=== PATIENT | male | born 1995 | race African-American/Black ===

== ENCOUNTER 2020-09-09 16:55 | Emergency (ER) | payer MEDICAID ==
[~2020-09-09] VITALS: Ht 182.9 cm; Wt 70.0 kg
[2020-09-09] MEDS ORDERED: ONDANSETRON 4MG ODT PO STA (18:04)
[2020-09-09] MEDS ORDERED: VISCOUS LIDOCAINE 2% 15 ML UDC PO STA (18:04)
[2020-09-09] MEDS ORDERED: MAGNESIUM/ALUMINUM HYDROXIDE/SIMETHICONE 30ML UDC PO STA (18:04)
[2020-09-09] MEDS ORDERED: SODIUM CHLORIDE 0.9% 1,000 ML IV ONE (18:30)
[2020-09-09] MEDS ORDERED: FAMOTIDINE 20MG/2ML VIAL IV NR (18:30)
[2020-09-09 19:07] LABS: BASOPHILS % 0.3 % (0.0-2.0); EOSINOPHILS % 0.1 % (0.0-5.0); HEMATOCRIT. 56.5 % (42.0-52.0); HEMOGLOBIN. 19.7 g/dL (14.0-18.0); LYMPHOCYTES % 18.3 % (20.0-50.0); MEAN CORPUSCULAR HEMOGLOBIN 28.1 pg (28.0-32.0); MEAN CORPUSCULAR VOLUME 80.8 fL (80.0-94.0); MEAN PLATELET VOLUME 8.7 fl (7.4-10.4); MONOCYTES % 7.5 % (2.0-8.0); NEUTROPHILS % 73.8 % (40.0-76.0); PLATELET 222 x1000/uL (130-400); RED BLOOD CELL COUNT 6.99 mill/uL (4.7-6.1); RED CELL DISTRIBUTION WIDTH 14.5 % (11.6-14.6)
[2020-09-09 19:10] LABS: CHLORIDE 105 mEq/L (98-107)
[2020-09-09 19:12] LABS: INR 1.2; PROTHROMBIN TIME 12.5 sec (9.6-11.0)
[2020-09-09 19:13] LABS: ETHANOL BLOOD < 10 mg/dL
[2020-09-09] MEDS ORDERED: ACETAMINOPHEN 325MG TABLET PO NR (20:45)
[2020-09-09] MEDS ORDERED: ACET-2708 MT (20:47)
[2020-09-09] MEDS ORDERED: ONDA4TAB5 MT (20:48)
[2020-09-09] MEDS ORDERED: FAMO-135 MT (20:48)
[2020-09-09 20:50] LABS: CLARITY URINE CLEAR (CLEAR); COLOR URINE DARK YELLOW (YELLOW); KETONES URINE 2+ (NEGATIVE); LEUKOCYTE ESTERASE URINE TRACE (NEGATIVE); NITRITE URINE NEGATIVE (NEGATIVE); OCCULT BLOOD URINE NEGATIVE (NEGATIVE); PH URINE 6.5 (4.5-8.0); PROTEIN URINE 1+ (NEGATIVE); SPECIFIC GRAVITY URINE 1.031 (1.005-1.030)
[2020-09-09 21:19] LABS: *AMPHETAMINES SCREEN URINE NEGATIVE (NEGATIVE); *BARBITURATES SCREEN URINE NEGATIVE (NEGATIVE); *BENZODIAZEPINES SCREEN URINE NEGATIVE (NEGATIVE); *COCAINE SCREEN URINE NEGATIVE (NEGATIVE); METHADONE URINE SCREEN NEGATIVE (NEGATIVE); OPIATES URINE SCREEN NEGATIVE (NEGATIVE); PHENCYCLIDINE URINE SCREEN NEGATIVE (NEGATIVE)
[2020-09-09 21:20] LABS: CANNABINOID URINE SCREEN PRESUMTIVE POSITIVE (NEGATIVE)
[2020-09-09 22:15] VITALS: BP 121/79
== END 2020-09-09 22:33 | disposition home or self-care (01) ==
LOC: ER 16:55
DX: R10.13 Epigastric pain (principal); M25.512 Pain in left shoulder; R11.2 Nausea with vomiting, unspecified; F17.200 Nicotine dependence, unspecified, uncomplicated; K21.9 Gastro-esophageal reflux disease without esophagitis; Z13.9 Encounter for screening, unspecified
CPT/HCPCS: 36415; 80053; 80305; 80320; 81003; 83690; 85025; 85610; 96361; 96374; 99284; J3490; J7030; Q0162; L3670; G0480

== ENCOUNTER 2020-11-09 10:37 | Emergency (ER) | payer MEDICAID ==
[~2020-11-09] VITALS: Ht 170.2 cm; Wt 70.0 kg
[~2020-11-09 10:37] MED LIST: ACET-2708 MT; FAMO-135 MT; ONDA4TAB5 MT
[2020-11-09] MEDS ORDERED: IBUPROFEN 600MG TABLET PO ONE (11:15)
[2020-11-09 11:41] LABS: BASOPHILS % 0.6 % (0.0-2.0); EOSINOPHILS % 0.3 % (0.0-5.0); HEMATOCRIT. 54.2 % (42.0-52.0); HEMOGLOBIN. 18.5 g/dL (14.0-18.0); LYMPHOCYTES % 26.7 % (20.0-50.0); MEAN CORPUSCULAR HEMOGLOBIN 27.6 pg (28.0-32.0); MEAN CORPUSCULAR VOLUME 81.1 fL (80.0-94.0); MEAN PLATELET VOLUME 8.6 fl (7.4-10.4); MONOCYTES % 8.1 % (2.0-8.0); NEUTROPHILS % 64.3 % (40.0-76.0); PLATELET 179 x1000/uL (130-400); RED BLOOD CELL COUNT 6.69 mill/uL (4.7-6.1); RED CELL DISTRIBUTION WIDTH 13.8 % (11.6-14.6)
[2020-11-09 11:44] LABS: CHLORIDE 102 mEq/L (98-107)
[2020-11-09 12:59] VITALS: BP 124/90
[2020-11-09] MEDS ORDERED: IBUP-2029 PO (13:41)
== END 2020-11-09 13:50 | disposition home or self-care (01) ==
LOC: ER 10:50
DX: M25.512 Pain in left shoulder (principal); R07.89 Other chest pain; K21.9 Gastro-esophageal reflux disease without esophagitis
CPT/HCPCS: 36415; 71045; 73030; 80053; 83880; 84484; 85025; 93005; 99285

== ENCOUNTER 2021-03-15 10:27 | Emergency (ER) | payer MEDICAID ==
[~2021-03-15] VITALS: Ht 182.9 cm; Wt 54.5 kg
[~2021-03-15 10:27] MED LIST changes: +IBUP-2029 PO
[2021-03-15] MEDS ORDERED: MAGNESIUM/ALUMINUM HYDROXIDE/SIMETHICONE 30ML UDC PO STA (11:08)
[2021-03-15] MEDS ORDERED: ONDANSETRON HCL 4MG/2ML INJ IV STA (11:08)
[2021-03-15] MEDS ORDERED: FAMOTIDINE 20MG/2ML VIAL IV STA (11:08)
[2021-03-15] MEDS ORDERED: DICYCLOMINE 10 MG/5 ML ORAL SYR PO STA (11:08)
[2021-03-15] MEDS ORDERED: VISCOUS LIDOCAINE 2% 15 ML UDC PO STA (11:08)
[2021-03-15 11:26] LABS: BASOPHILS % 0.6 % (0.0-2.0); EOSINOPHILS % 0.7 % (0.0-5.0); HEMATOCRIT. 46.3 % (42.0-52.0); HEMOGLOBIN. 15.9 g/dL (14.0-18.0); LYMPHOCYTES % 25.2 % (20.0-50.0); MEAN CORPUSCULAR HEMOGLOBIN 27.8 pg (28.0-32.0); MEAN CORPUSCULAR VOLUME 81.2 fL (80.0-94.0); MEAN PLATELET VOLUME 8.4 fl (7.4-10.4); MONOCYTES % 8.2 % (2.0-8.0); NEUTROPHILS % 65.3 % (40.0-76.0); PLATELET 154 x1000/uL (130-400); RED CELL DISTRIBUTION WIDTH 14.1 % (11.6-14.6)
[2021-03-15 11:33] LABS: CHLORIDE 105 mEq/L (98-107)
[2021-03-15] MEDS: LIDOCAINE HCL 20 MG/ML 100ML BOTTLE PO NR ×2 (12:25→12:36)
[2021-03-15] MEDS ORDERED: OMEP20CA14 PO (12:28)
[2021-03-15] MEDS ORDERED: ONDA4TAB5 PO (12:28)
[2021-03-15] MEDS ORDERED: TOPUD PO (12:28)
[2021-03-15 14:54] VITALS: BP 131/85
== END 2021-03-15 13:54 | disposition home or self-care (01) ==
LOC: ER 10:37
DX: K21.9 Gastro-esophageal reflux disease without esophagitis (principal); M25.512 Pain in left shoulder
CPT/HCPCS: 36415; 73030; 76705; 80053; 83690; 85025; 96374; 96375; 99285; J2405; J3490

== ENCOUNTER 2021-05-15 10:01 | Emergency (ER) | payer MEDICAID, OTHER ==
[~2021-05-15] VITALS: Ht 175.3 cm; Wt 73.0 kg
[~2021-05-15 10:01] MED LIST changes: +OMEP20CA14 PO; +ONDA4TAB5 PO; +TOPUD PO
[2021-05-15] MEDS ORDERED: MORPHINE SULFATE 4 MG/ML CPJ (NOT FOR IM USE) IV STA (10:17)
[2021-05-15] MEDS ORDERED: FAMOTIDINE 20MG/2ML VIAL IV STA (10:17)
[2021-05-15] MEDS ORDERED: ONDANSETRON HCL 4MG/2ML INJ IV STA (10:17)
[2021-05-15 10:38] LABS: BASOPHILS % 0.6 % (0.0-2.0); EOSINOPHILS % 0.6 % (0.0-5.0); HEMATOCRIT. 47.5 % (42.0-52.0); HEMOGLOBIN. 16.4 g/dL (14.0-18.0); LYMPHOCYTES % 24.9 % (20.0-50.0); MEAN CORPUSCULAR HEMOGLOBIN 27.5 pg (28.0-32.0); MEAN CORPUSCULAR VOLUME 79.7 fL (80.0-94.0); MEAN PLATELET VOLUME 8.4 fl (7.4-10.4); MONOCYTES % 6.8 % (2.0-8.0); NEUTROPHILS % 67.1 % (40.0-76.0); PLATELET 164 x1000/uL (130-400); RED BLOOD CELL COUNT 5.96 mill/uL (4.7-6.1); RED CELL DISTRIBUTION WIDTH 14.3 % (11.6-14.6)
[2021-05-15 10:45] LABS: CHLORIDE 104 mEq/L (98-107)
[2021-05-15 11:33] LABS: PROTHROMBIN TIME 10.9 sec (9.6-11.0)
[2021-05-15] MEDS ORDERED: MAGNESIUM/ALUMINUM HYDROXIDE/SIMETHICONE 30ML UDC PO STA (11:48)
[2021-05-15] MEDS ORDERED: DICYCLOMINE 10 MG/5 ML ORAL SYR PO STA (11:48)
[2021-05-15] MEDS ORDERED: VISCOUS LIDOCAINE 2% 15 ML UDC PO STA (11:48)
[2021-05-15 12:10] LABS: CLARITY URINE CLEAR (CLEAR); COLOR URINE DARK YELLOW (YELLOW); KETONES URINE 1+ (NEGATIVE); LEUKOCYTE ESTERASE URINE TRACE (NEGATIVE); NITRITE URINE NEGATIVE (NEGATIVE); OCCULT BLOOD URINE NEGATIVE (NEGATIVE); PROTEIN URINE 2+ (NEGATIVE); SPECIFIC GRAVITY URINE 1.033 (1.005-1.030)
[2021-05-15] MEDS ORDERED: SUCRALFATE 1 G/10 ML UDC PO SCH (13:00)
[2021-05-15 15:07] VITALS: BP 119/77
== END 2021-05-15 15:34 | disposition short-term general hospital (02) ==
LOC: ER 10:01
DX: R10.13 Epigastric pain (principal); K92.0 Hematemesis; Z87.11 Personal history of peptic ulcer disease
CPT/HCPCS: 36415; 74176; 80053; 81003; 83690; 85025; 85610; 86850; 86900; 86901; 96374; 96375; 99284; J2270; J2405; J3490

== ENCOUNTER 2021-10-25 09:23 | Emergency (ER) | payer MEDICAID, OTHER ==
[~2021-10-25] VITALS: Ht 177.8 cm; Wt 75.0 kg
[2021-10-25] MEDS ORDERED: MORPHINE SULFATE 4 MG/ML CPJ (NOT FOR IM USE) IV STA (09:43)
[2021-10-25] MEDS ORDERED: ONDANSETRON HCL 4MG/2ML INJ IV STA (09:43)
[2021-10-25] MEDS ORDERED: SODIUM CHLORIDE 0.9% 1,000 ML IV ONE (09:45)
[2021-10-25] MEDS ORDERED: MIDAZOLAM HCL 2 MG/2 ML VIAL IV ONE (09:45)
[2021-10-25 10:14] LABS: BASOPHILS % 0.4 % (0.0-2.0); EOSINOPHILS % 0.1 % (0.0-5.0); HEMATOCRIT. 53.7 % (42.0-52.0); HEMOGLOBIN. 18.7 g/dL (14.0-18.0); LYMPHOCYTES % 29.9 % (20.0-50.0); MEAN CORPUSCULAR HEMOGLOBIN 28.1 pg (28.0-32.0); MEAN CORPUSCULAR VOLUME 80.4 fL (80.0-94.0); MEAN PLATELET VOLUME 9.9 fl (7.4-10.4); MONOCYTES % 7.7 % (2.0-8.0); NEUTROPHILS % 61.9 % (40.0-76.0); PLATELET 186 x1000/uL (130-400); RED BLOOD CELL COUNT 6.68 mill/uL (4.7-6.1); RED CELL DISTRIBUTION WIDTH 14.5 % (11.6-14.6)
[2021-10-25 10:22] LABS: CHLORIDE 104 mEq/L (98-107)
[2021-10-25 10:26] LABS: INR 1.1; PROTHROMBIN TIME 11.4 sec (9.6-11.0)
[2021-10-25 10:30] LABS: ETHANOL BLOOD < 10 mg/dL
[2021-10-25 12:48] LABS: CLARITY URINE CLEAR (CLEAR); COLOR URINE DARK YELLOW (YELLOW); KETONES URINE 1+ (NEGATIVE); LEUKOCYTE ESTERASE URINE TRACE (NEGATIVE); NITRITE URINE NEGATIVE (NEGATIVE); OCCULT BLOOD URINE NEGATIVE (NEGATIVE); PH URINE 5.5 (4.5-8.0); PROTEIN URINE 3+ (NEGATIVE); SPECIFIC GRAVITY URINE 1.043 (1.005-1.030)
[2021-10-25 13:34] LABS: *AMPHETAMINES SCREEN URINE NEGATIVE (NEGATIVE); *BARBITURATES SCREEN URINE NEGATIVE (NEGATIVE); *BENZODIAZEPINES SCREEN URINE PRESUMTIVE POSITIVE (NEGATIVE); *COCAINE SCREEN URINE NEGATIVE (NEGATIVE); CANNABINOID URINE SCREEN PRESUMTIVE POSITIVE (NEGATIVE); METHADONE URINE SCREEN NEGATIVE (NEGATIVE); OPIATES URINE SCREEN PRESUMTIVE POSITIVE (NEGATIVE); PHENCYCLIDINE URINE SCREEN NEGATIVE (NEGATIVE)
[2021-10-25] MEDS ORDERED: KETOROLAC 30MG/ML VIAL IV ONE (13:45)
[2021-10-25] MEDS ORDERED: ONDA4TAB11 PO (14:04)
[2021-10-25] MEDS ORDERED: OMEP20CA14 MT (14:04)
[2021-10-25] MEDS ORDERED: DICY20TA2 MT (14:04)
[2021-10-25 14:35] VITALS: BP 145/84
== END 2021-10-25 14:40 | disposition home or self-care (01) ==
LOC: ER 09:23
DX: R10.13 Epigastric pain (principal); K92.0 Hematemesis; R71.8 Other abnormality of red blood cells; I10 Essential (primary) hypertension; E83.52 Hypercalcemia; R79.89 Other specified abnormal findings of blood chemistry; F12.90 Cannabis use, unspecified, uncomplicated; Z87.11 Personal history of peptic ulcer disease
CPT/HCPCS: 36415; 71045; 80053; 80305; 80320; 81003; 83690; 85025; 85610; 96361; 96374; 96375; 99285; J1885; J2250; J2270; J2405; J7030; G0480

== ENCOUNTER 2021-12-10 08:13 | Emergency (ER) | payer OTHER ==
[~2021-12-10] VITALS: Ht 182.9 cm; Wt 68.0 kg
[~2021-12-10 08:13] MED LIST changes: +DICY20TA2 MT; +OMEP20CA14 MT; +ONDA4TAB11 PO
[2021-12-10] MEDS ORDERED: MAGNESIUM/ALUMINUM HYDROXIDE/SIMETHICONE 30ML UDC PO STA (10:53)
[2021-12-10] MEDS ORDERED: VISCOUS LIDOCAINE 2% 15 ML UDC PO STA (10:53)
[2021-12-10] MEDS ORDERED: METOCLOPRAMIDE HCL 10MG TABLET PO STA (10:53)
[2021-12-10] MEDS ORDERED: FAMOTIDINE 20MG TABLET PO ONE (11:00)
[2021-12-10 11:29] LABS: BASOPHILS % 0.3 % (0.0-2.0); EOSINOPHILS % 0.4 % (0.0-5.0); HEMATOCRIT. 47.6 % (42.0-52.0); HEMOGLOBIN. 16.6 g/dL (14.0-18.0); LYMPHOCYTES % 28.7 % (20.0-50.0); MEAN CORPUSCULAR HEMOGLOBIN 28.6 pg (28.0-32.0); MEAN PLATELET VOLUME 8.3 fl (7.4-10.4); MONOCYTES % 4.9 % (2.0-8.0); NEUTROPHILS % 65.7 % (40.0-76.0); PLATELET 167 x1000/uL (130-400); RED BLOOD CELL COUNT 5.81 mill/uL (4.7-6.1); RED CELL DISTRIBUTION WIDTH 14.9 % (11.6-14.6)
[2021-12-10 11:41] LABS: CHLORIDE 106 mEq/L (98-107)
[2021-12-10] MEDS ORDERED: ACETAMINOPHEN 325MG TABLET PO ONE (13:30)
[2021-12-10 14:13] VITALS: BP 132/55
== END 2021-12-10 14:15 | disposition home or self-care (01) ==
LOC: ER 08:23
DX: R10.9 Unspecified abdominal pain (principal); R11.10 Vomiting, unspecified; K21.9 Gastro-esophageal reflux disease without esophagitis; I10 Essential (primary) hypertension; F20.9 Schizophrenia, unspecified; F12.10 Cannabis abuse, uncomplicated; Z79.899 Other long term (current) drug therapy
CPT/HCPCS: 36415; 80053; 83690; 85025; 99284; J8597

== ENCOUNTER 2024-01-17 18:01 | Emergency (ER) | payer OTHER ==
[~2024-01-17] VITALS: Ht 188 cm; Wt 65.7 kg
[~2024-01-17 18:01] MED LIST changes: +ONDA-239 PO; -ONDA4TAB11 PO
[2024-01-17 18:06] VITALS: BP 138/102; PULSE 120; RESP 16; O2SAT 99
[2024-01-17 19:55] LABS: BASOPHILS % 0.4 % (0.0-2.0); DIFFERENTIAL COMMENT 0; EOSINOPHILS % 0.2 % (0.0-5.0); HEMATOCRIT. 46.1 % (42.0-52.0); HEMOGLOBIN. 16.5 g/dL (14.0-18.0); LYMPHOCYTES % 42.9 % (20.0-50.0); MEAN CORPUSCULAR HEMOGLOBIN 28.3 pg (28.0-32.0); MEAN CORPUSCULAR HGB CONC 35.7 g/dL (31.0-37.0); MEAN CORPUSCULAR VOLUME 79.2 fL (80.0-94.0); MEAN PLATELET VOLUME 8.1 fl (7.4-10.4); MONOCYTES % 9.1 % (2.0-8.0); NEUTROPHILS % 47.4 % (40.0-76.0); PLATELET 160 x1000/uL (130-400); RED BLOOD CELL COUNT 5.82 mill/uL (4.7-6.1); RED CELL DISTRIBUTION WIDTH 14.8 % (11.6-14.6); WHITE BLOOD COUNT 6.5 x1000/uL (4.5-11.0)
[2024-01-17 19:56] LABS: CHLORIDE 101 mEq/L (98-107); POTASSIUM 3.9 mEq/L (3.5-5.1); SODIUM 136 mEq/L (136-145)
[2024-01-17 19:57] LABS: CALCIUM 10.9 mg/dL (8.7-10.4); CARBON DIOXIDE 28 mEq/L (21-32)
[2024-01-17 20:00] LABS: INR 1.1; PROTHROMBIN TIME 11.8 sec (9.6-11.0)
[2024-01-17 20:02] LABS: CREATININE 1.2 mg/dL (0.6-1.3); GLUCOSE 91 mg/dL (70-105); UREA NITROGEN BLOOD 13 mg/dL (9-23)
[2024-01-17 20:04] LABS: ALANINE AMINOTRANSFERASE 33 IU/L (10-49); ASPARTATE AMINOTRANSFERASE 32 IU/L (<34); BILIRUBIN DIRECT 0.3 mg/dL (<=3.0); BILIRUBIN TOTAL 0.9 mg/dL (0.1-1.0); PROTEIN TOTAL 8.7 g/dL (6.0-8.3)
[2024-01-17] MEDS: MAGNESIUM/ALUMINUM HYDROXIDE/SIMETHICONE 30ML UDC PO STA (20:08)
[2024-01-17 20:17] VITALS: TEMP 98.2
[2024-01-17] MEDS: ONDANSETRON HCL 4MG/2ML INJ IV STA (20:17)
[2024-01-17] MEDS: ACETAMINOPHEN 325MG TABLET PO STA (20:17)
[2024-01-17] MEDS: SODIUM CHLORIDE 0.9% 1,000 ML IV ONE (20:18)
[2024-01-17] MEDS ORDERED: OMEP20CA14 MT (20:47)
== END 2024-01-17 21:13 | disposition home or self-care (01) ==
LOC: ER 18:01
DX: K21.9 Gastro-esophageal reflux disease without esophagitis (principal); M54.50 Low back pain, unspecified; G89.29 Other chronic pain; I10 Essential (primary) hypertension; F20.9 Schizophrenia, unspecified; Z79.899 Other long term (current) drug therapy
CPT/HCPCS: 99283; 96374; 96361; 80076; 80048; 83690; 85025; 85610; 36415; J2405; J7030

== ENCOUNTER 2024-02-19 14:51 | Emergency (ER) | payer OTHER ==
[~2024-02-19] VITALS: Ht 172.7 cm; Wt 70.0 kg
[2024-02-19 14:54] VITALS: O2SAT 97
[2024-02-19] MEDS: ONDANSETRON 4MG ODT PO STA (15:15)
[2024-02-19] MEDS: FAMOTIDINE 20MG TABLET PO ONE (15:15)
[2024-02-19] MEDS ORDERED: DICYCLOMINE 10 MG/5 ML ORAL SYR PO STA (15:15)
[2024-02-19] MEDS: DICYCLOMINE HCL 10MG CAPSULE PO NR (15:30)
[2024-02-19 15:41] LABS: BASOPHILS % 0.5 % (0.0-2.0); EOSINOPHILS % 0.1 % (0.0-5.0); HEMOGLOBIN. 18.4 g/dL (14.0-18.0); LYMPHOCYTES % 20.5 % (20.0-50.0); MEAN CORPUSCULAR HEMOGLOBIN 27.5 pg (28.0-32.0); MEAN CORPUSCULAR HGB CONC 34.8 g/dL (31.0-37.0); MEAN CORPUSCULAR VOLUME 79.2 fL (80.0-94.0); MONOCYTES % 5.3 % (2.0-8.0); NEUTROPHILS % 73.6 % (40.0-76.0); RED BLOOD CELL COUNT 6.69 mill/uL (4.7-6.1); RED CELL DISTRIBUTION WIDTH 15.1 % (11.6-14.6); WHITE BLOOD COUNT 8.3 x1000/uL (4.5-11.0)
[2024-02-19 15:47] LABS: DIFFERENTIAL COMMENT 1
[2024-02-19 15:48] LABS: ADD RBC MORPHOLOGY YES; CARBON DIOXIDE 22 mEq/L (21-32); CHLORIDE 102 mEq/L (98-107); POTASSIUM 3.8 mEq/L (3.5-5.1); SODIUM 139 mEq/L (136-145)
[2024-02-19 15:49] LABS: CALCIUM 11.5 mg/dL (8.7-10.4)
[2024-02-19 15:53] LABS: CREATININE 1.4 mg/dL (0.6-1.3)
[2024-02-19 15:54] LABS: GLUCOSE 130 mg/dL (70-105); UREA NITROGEN BLOOD 25 mg/dL (9-23)
[2024-02-19 15:55] LABS: ALANINE AMINOTRANSFERASE 35 IU/L (10-49); ALBUMIN 5.6 g/dL (3.2-4.8); ASPARTATE AMINOTRANSFERASE 27 IU/L (<34)
[2024-02-19 15:56] LABS: BILIRUBIN DIRECT 0.2 mg/dL (<=3.0); BILIRUBIN TOTAL 0.9 mg/dL (0.1-1.0); PROTEIN TOTAL 9.9 g/dL (6.0-8.3)
[2024-02-19] MEDS: HALOPERIDOL LACTATE 5MG/ML VIAL IM ONE (16:37)
[2024-02-19] MEDS: DIPHENHYDRAMINE 50MG/ML VIAL IV ONE (16:44)
[2024-02-19] MEDS: SODIUM CHLORIDE 0.9% 1,000 ML IV ONE (16:47)
[2024-02-19 16:48] LABS: MICROCYTOSIS 1+; PLATELET ESTIMATE NORMAL
[2024-02-19] MEDS: FAMOTIDINE 20MG/2ML VIAL IV ONE (16:50)
[2024-02-19 17:40] LABS: PLATELET 215 x1000/uL (130-400)
[2024-02-19] MEDS ORDERED: FAMO-135 MT (17:42)
[2024-02-19 18:47] VITALS: BP 117/58; PULSE 80; RESP 18; TEMP 36.50292; O2SAT 97
== END 2024-02-19 18:48 | disposition home or self-care (01) ==
LOC: ER 14:51
DX: F12.90 Cannabis use, unspecified, uncomplicated (principal); K21.9 Gastro-esophageal reflux disease without esophagitis; I10 Essential (primary) hypertension; F20.9 Schizophrenia, unspecified; Z79.899 Other long term (current) drug therapy
CPT/HCPCS: 80076; 80048; 83690; 85025; 36415; 96361; 96372; 96374; 96375; 99284; J1200; J3490; J1630; J7030; Z7610 ×2

== ENCOUNTER 2024-03-30 00:43 | Emergency (ER) | payer OTHER ==
[~2024-03-30] VITALS: Ht 180.3 cm; Wt 87.0 kg
[2024-03-30 00:47] VITALS: O2SAT 98
[2024-03-30 01:13] LABS: BASOPHILS % 0.8 % (0.0-2.0); CHLORIDE 101 mEq/L (98-107); DIFFERENTIAL COMMENT 0; EOSINOPHILS % 0.1 % (0.0-5.0); HEMATOCRIT. 53.6 % (42.0-52.0); HEMOGLOBIN. 18.6 g/dL (14.0-18.0); LYMPHOCYTES % 43.6 % (20.0-50.0); MEAN CORPUSCULAR HEMOGLOBIN 28.2 pg (28.0-32.0); MEAN CORPUSCULAR HGB CONC 34.7 g/dL (31.0-37.0); MEAN CORPUSCULAR VOLUME 81.2 fL (80.0-94.0); MEAN PLATELET VOLUME 9.7 fl (7.4-10.4); MONOCYTES % 7.7 % (2.0-8.0); NEUTROPHILS % 47.8 % (40.0-76.0); PLATELET 232 x1000/uL (130-400); POTASSIUM 3.6 mEq/L (3.5-5.1); RED BLOOD CELL COUNT 6.61 mill/uL (4.7-6.1); RED CELL DISTRIBUTION WIDTH 15.2 % (11.6-14.6); SODIUM 141 mEq/L (136-145)
[2024-03-30 01:14] LABS: CARBON DIOXIDE 22 mEq/L (21-32)
[2024-03-30 01:19] LABS: CREATININE 1.8 mg/dL (0.6-1.3); GLUCOSE 163 mg/dL (70-105); UREA NITROGEN BLOOD 17 mg/dL (9-23)
[2024-03-30 01:21] LABS: ALANINE AMINOTRANSFERASE 18 IU/L (10-49); ALBUMIN 5.7 g/dL (3.2-4.8); ASPARTATE AMINOTRANSFERASE 22 IU/L (<34); BILIRUBIN DIRECT 0.3 mg/dL (<=3.0); PROTEIN TOTAL 9.3 g/dL (6.0-8.3)
[2024-03-30] MEDS ORDERED: MORPHINE SULFATE 4 MG/ML INJ (FOR IV/IM USE) IV STA (01:56)
[2024-03-30 02:59] LABS: LACTIC ACID 4.1 mmol/L (0.4-2.0)
[2024-03-30 03:00] LABS: ETHANOL BLOOD < 10 mg/dL (<10)
[2024-03-30 05:40] LABS: CLARITY URINE CLOUDY (CLEAR); COLOR URINE DARK YELLOW (YELLOW); GLUCOSE URINE NEGATIVE (NEGATIVE); KETONES URINE 2+ (NEGATIVE); LEUKOCYTE ESTERASE URINE 1+ (NEGATIVE); NITRITE URINE POSITIVE (NEGATIVE); OCCULT BLOOD URINE NEGATIVE (NEGATIVE); PH URINE 5.5 (4.5-8.0); PROTEIN URINE 4+ (NEGATIVE); SPECIFIC GRAVITY URINE 1.042 (1.005-1.030)
[2024-03-30] MEDS: PANTOPRAZOLE SODIUM 40 MG/VIAL IV STA (05:43)
[2024-03-30] MEDS: ONDANSETRON HCL 4MG/2ML INJ IV STA (05:43)
[2024-03-30] MEDS: SODIUM CHLORIDE 0.9% 1,000 ML IV ONE (05:44)
[2024-03-30] MEDS: PANTOPRAZOLE SODIUM 40 MG/VIAL IV NR (05:51)
[2024-03-30] MEDS: MORPHINE SULFATE 4 MG/ML INJ (FOR IV/IM USE) IV NR (05:51)
[2024-03-30] MEDS: ONDANSETRON HCL 4MG/2ML INJ IV NR (05:51)
[2024-03-30 06:37] LABS: BACTERIA URINE NONE SEEN; RBC URINE NONE SEEN /hpf (0-2); SQUAMOUS EPITHELIAL CELL URINE NONE SEEN /lpf (RARE/1+); WBC URINE 0-2 /hpf (0-2)
[2024-03-30] MEDS ORDERED: IPRATROPIUM/ALBUTEROL 0.5-3(2.5)MG/3ML NEB HHN PRN (09:00)
[2024-03-30] MEDS ORDERED: SODIUM CHLORIDE 0.9% 1,000 ML IV SCH (09:00)
[2024-03-30] MEDS ORDERED: CLONIDINE 0.1MG TABLET PO PRN (09:00)
[2024-03-30] MEDS ORDERED: PANTOPRAZOLE 80 MG in SODIUM CHLORIDE 0.9% 100 ML IV SCH (09:00)
[2024-03-30] MEDS ORDERED: GUAIFENESIN 200MG/10ML SUGAR FREE UDC PO PRN (09:00)
[2024-03-30] MEDS ORDERED: MAGNESIUM/ALUMINUM HYDROXIDE/SIMETHICONE 30ML UDC PO PRN (09:00)
[2024-03-30] MEDS ORDERED: SUCRALFATE 1G TABLET PO SCH (09:00)
[2024-03-30] MEDS ORDERED: DOCUSATE SODIUM 100MG CAPSULE PO PRN (09:00)
[2024-03-30 09:11] VITALS: BP 152/90; PULSE 83; RESP 19; TEMP 36.89184; O2SAT 99
[2024-03-30] MEDS: MORPHINE SULFATE 4 MG/ML INJ (FOR IV/IM USE) IV ONE (09:24)
[2024-03-31 11:51] LABS: *AMPHETAMINES SCREEN URINE NEGATIVE (NEGATIVE); *BARBITURATES SCREEN URINE NEGATIVE (NEGATIVE); *BENZODIAZEPINES SCREEN URINE NEGATIVE (NEGATIVE); *COCAINE SCREEN URINE NEGATIVE (NEGATIVE); CANNABINOID URINE SCREEN PRESUMPTIVE POSITIVE (NEGATIVE); ECSTASY MDMA SCREEN URINE NEGATIVE (NEGATIVE); METHADONE URINE SCREEN NEGATIVE (NEGATIVE); OPIATES URINE SCREEN NEGATIVE (NEGATIVE); PHENCYCLIDINE URINE SCREEN NEGATIVE (NEGATIVE)
== END 2024-03-30 09:22 | disposition short-term general hospital (02) ==
LOC: ER 00:43
DX: N17.9 Acute kidney failure, unspecified (principal); F12.10 Cannabis abuse, uncomplicated; I10 Essential (primary) hypertension; Z91.048 Other nonmedicinal substance allergy status; Z79.899 Other long term (current) drug therapy; Z86.59 Personal history of other mental and behavioral disorders; Z87.19 Personal history of other diseases of the digestive system
CPT/HCPCS: 80076; 80305; 80048; 81003; 80320; 83605; 83690; 85025; 36415; 74176; 96374; 96375; 96376; 99285; J2405; J2470; J2270; J7030; Z7610 ×2; G0480